=== PATIENT | female | born 1995 | race Caucasian/White ===

== ENCOUNTER 2019-07-31 13:22 | Emergency (ER) | payer OTHER, SELFPAY ==
[2019-07-31] MEDS ORDERED: Adacel (T-DAP) 0.5 ML SYRINGE ONE (13:44)
[2019-07-31] MEDS ORDERED: Amoxicillin/Potassium Clav 875 MG TAB ONE (13:44)
[2019-07-31] MEDS ORDERED: Bacitracin 1 PK ONE (13:44)
[2019-07-31] MEDS ORDERED: Ibuprofen 800 MG TAB ONE (13:44)
== END 2019-07-31 14:11 | disposition home or self-care (01) ==
LOC: MADERS 13:22
DX: S81.852A Open bite, left lower leg, initial encounter (principal); Z23 Encounter for immunization; E11.9 Type 2 diabetes mellitus without complications; F17.210 Nicotine dependence, cigarettes, uncomplicated; Z79.4 Long term (current) use of insulin; W54.0XXA Bitten by dog, initial encounter
CPT/HCPCS: 90471; 90715

== ENCOUNTER 2019-09-24 14:14 | Emergency (ER) | payer MEDICAID, OTHER ==
[2019-09-24 14:53] LABS: Bilirubin Negative (Negative); Blood, Urine Small (Negative); Clarity Slightly Cloudy (Clear); Glucose, Urine (Dipstick) >=1000 mg/dL (Negative); Leukocyte Small (Negative); Nitrite Negative (Negative); Protein, Urine (Dipstick) 30 mg/dL (Neg-Trace); Urobilinogen 0.2 mg/dL (Less than 2)
[2019-09-24 14:57] LABS: Bacteria/HPF 2+ HPF (None Seen); WBC/HPF Greater Than 50 HPF (0-3)
[2019-09-24] MEDS ORDERED: Sodium Chloride 0.9% 100 ML ONE (15:07)
[2019-09-24] MEDS ORDERED: cefTRIAXone\\ROCEPHIN 1 GM VIAL ONE (15:07)
[2019-09-24] MEDS ORDERED: Sodium Chloride 0.9% 1,000 ML ONE (15:07)
[2019-09-24 15:37] LABS: #Eosinphils 0.1 thou/uL (0.0-0.7); #Lymphocytes 2.4 thou/uL (1.20-3.40); #Monocytes 0.9 thou/uL (0.11-0.59); #Neutrophils 8.3 thou/uL (1.40-6.50); %Basophils 0.4 % (0.0-1.0); %Eosinophils 0.8 % (0.0-10.0); %Lymphocytes 20.6 % (21.0-51.0); %Monocytes 7.3 % (0.0-10.0); Hemoglobin 11.8 g/dL (12.0-16.0); Mean Corpuscular HGB CONC 32.2 g/dL (32.0-36.0); Mean Corpuscular Hemoglobin 28.1 pg (27.0-31.0); Mean Corpuscular Volume 87.2 fL (78.0-98.0); Mean Platelet Volume 7.3 fL (7.4-10.4); Platelet Count 271 thou/uL (130-400); RBC Distribution Width 13.5 % (11.5-14.5); Red Blood Cell (RBC) Count 4.19 mill/uL (4.20-5.40); White Blood Cell (WBC) Count 11.8 thou/uL (4.8-10.8)
[2019-09-24 15:48] LABS: ALT (SGPT) 13 U/L (8-55); AST (SGOT) 8 U/L (5-34); Albumin 3.8 g/dL (3.5-5.0); Alkaline Phosphatase 79 U/L (40-110); Anion Gap 14 mmol/L (10-20); BUN (Urea Nitrogen) 6 mg/dL (7.0-18.7); Bilirubin, Total Less than 0.2 mg/dL (0.2-1.2); Calc. Creatinine Clearance 0 mL/min (70-130); Calcium 9.3 mg/dL (7.8-10.44); Carbon Dioxide 21 mmol/L (22-29); Chloride 104 mmol/L (98-107); Estimated GFR-MDRD Greater than 90; Globulin 3.3 g/dL (2.4-3.5); Glucose 144 mg/dL (70-105); Potassium 3.8 mmol/L (3.5-5.1); Protein, Total 7.1 g/dL (6.0-8.3); Sodium 135 mmol/L (136-145)
== END 2019-09-24 17:25 | disposition short-term general hospital (02) ==
LOC: MADERS 14:14
DX: O23.02 Infections of kidney in pregnancy, second trimester (principal); O24.012 Pre-existing type 1 diabetes mellitus, in pregnancy, second trimester; E10.9 Type 1 diabetes mellitus without complications; O99.342 Other mental disorders complicating pregnancy, second trimester; F32.9 Major depressive disorder, single episode, unspecified; O99.332 Smoking (tobacco) complicating pregnancy, second trimester; F17.210 Nicotine dependence, cigarettes, uncomplicated; Z79.899 Other long term (current) drug therapy; Z3A.15 15 weeks gestation of pregnancy
CPT/HCPCS: 80053; 81003; 81015; 83605; 85025; 87040; 87077; 87086; 87186; 96365; 99406; J0696; J3490; J7050

== ENCOUNTER 2022-10-03 12:20 | Emergency (ER) | payer OTHER ==
[~2022-10-03 12:20] MED LIST: Iopamidol 370 76% 100 ML VIAL ONE; NPH, Human Insulin Isophane 300 UNIT/3 ML VIAL ONE; Sodium Chloride 0.9% 1,000 ML BAG ONE
[2022-10-03] MEDS ORDERED: Sodium Chloride 0.9% 1,000 ML ONE ×2 (13:03→13:52)
[2022-10-03] MEDS ORDERED: Ibuprofen 600 MG TAB ONE (13:03)
[2022-10-03 13:04] LABS: Bilirubin Negative (Negative); Blood, Urine Small (Negative); Glucose, Urine (Dipstick) 100 mg/dL (Negative); Ketone, Urine Negative (Negative); Leukocyte Small (Negative); Nitrite Positive (Negative); Protein, Urine (Dipstick) 30 mg/dL (Neg-Trace); Urobilinogen 0.2 mg/dL (Less than 2); pH, Urine 6.5 (5.0-9.0)
[2022-10-03 13:06] LABS: #Basophils 0.1 thou/uL (0.0-0.2); #Lymphocytes 1.2 thou/uL (1.20-3.40); #Monocytes 0.8 thou/uL (0.11-0.59); #Neutrophils 12.7 thou/uL (1.40-6.50); %Basophils 0.9 % (0.0-1.0); %Eosinophils 0.1 % (0.0-10.0); %Lymphocytes 7.9 % (21.0-51.0); %Monocytes 5.3 % (0.0-10.0); %Neutrophils 85.8 % (42.0-75.0); Mean Corpuscular HGB CONC 31.6 g/dL (32.0-36.0); Mean Corpuscular Hemoglobin 27.8 pg (27.0-31.0); Mean Platelet Volume 7.2 fL (7.4-10.4); Platelet Count 431 10x3/uL (130-400); RBC Distribution Width 13.3 % (11.5-14.5); Red Blood Cell (RBC) Count 4.68 mill/uL (4.20-5.40); White Blood Cell (WBC) Count 14.8 10x3/uL (4.8-10.8)
[2022-10-03] MEDS ORDERED: Ondansetron PF 4 MG/2 ML Vial ONE (13:07)
[2022-10-03 13:10] LABS: Clarity Cloudy (Clear); Specific Gravity, Urine 1.031 (1.002-1.036)
[2022-10-03 13:11] LABS: Bacteria/HPF 2+ HPF (None Seen); RBC/HPF 0-3 HPF (0-3); Squamous Epithelial 0-3 HPF (0-3); WBC/HPF Greater Than 50 HPF (0-3)
[2022-10-03 13:20] LABS: ALT (SGPT) 31 U/L (8-55); AST (SGOT) 43 U/L (5-34); Albumin 3.9 g/dL (3.5-5.0); Alkaline Phosphatase 144 U/L (40-110); Anion Gap 13 mmol/L (10-20); BUN (Urea Nitrogen) 6 mg/dL (7.0-18.7); Bilirubin, Total 0.4 mg/dL (0.2-1.2); Calc. Creatinine Clearance 0 mL/min (70-130); Calcium 9.5 mg/dL (7.8-10.44); Carbon Dioxide 25 mmol/L (22-29); Chloride 103 mmol/L (98-107); Estimated GFR 120; Globulin 3.7 g/dL (2.4-3.5); Glucose 66 mg/dL (70-105); Potassium 3.8 mmol/L (3.5-5.1); Protein, Total 7.6 g/dL (6.0-8.3); Sodium 137 mmol/L (136-145)
[2022-10-03 13:51] LABS: Pregnancy Test - Urine (BHCG) Negative (Negative); Pregu Control Background? CLEAR/WHITE (CLR/WHITE); Specific Gravity 1.031 (1.002-1.036)
[2022-10-03] MEDS ORDERED: Ketorolac Tromethamine 30 MG/ML VIAL ONE ×2 (13:52→17:49)
[2022-10-03] MEDS ORDERED: Morphine 4 MG/ML VIAL ONE ×2 (13:53→16:33)
[2022-10-03 13:56] LABS: Pregu Control Bar Appear? YES (CONTROL BAR)
[2022-10-03] MEDS ORDERED: Sodium Chloride 0.9% 100 ML ONE (14:05)
[2022-10-03] MEDS ORDERED: cefTRIAXone\\ROCEPHIN 2 GM VIAL ONE (14:05)
[2022-10-03] MEDS ORDERED: Sodium Chloride 0.9% 250 ML 500 ML ONE (14:24)
[2022-10-03 16:09] LABS: Lactic Acid 2.6 mmol/L (0.5-2.2)
[2022-10-03] MEDS ORDERED: Acetaminophen 500 MG TAB ONE (17:53)
[2022-10-03] MEDS ORDERED: NPH, Human Insulin Isophane 300 UNIT/3 ML VIAL SC SCH (18:45)
== END 2022-10-03 19:31 | disposition short-term general hospital (02) ==
LOC: MADERS 12:20
DX: A41.9 Sepsis, unspecified organism (principal); N10 Acute pyelonephritis; E10.9 Type 1 diabetes mellitus without complications; Z79.4 Long term (current) use of insulin; F17.210 Nicotine dependence, cigarettes, uncomplicated
CPT/HCPCS: 36415; 36416; 74177; 80053; 81003; 81015; 81025; 83605; 85025; 87040; 87077; 87086; 87186; 93005; 94760; 96361; 96365; 96366; 96367; 96375; 96376; J0696; J1815; J1885; J2270; J2405; J3370; J3490; J7050; Q9967